=== PATIENT | male | born 1930 | race Caucasian/White ===

== ENCOUNTER 2019-10-14 19:52 | Inpatient (IN) | payer OTHER, MEDICARE ==
[2019-10-14] MEDS ORDERED: SODIUM CHLORIDE 500 ML IV STA (20:36)
[2019-10-14 21:09] LABS: HEMATOCRIT 30.5 % (35.4-49); HEMOGLOBIN 9.8 GM/dl (11.7-16.9); MCH 28.7 pg (25.7-33.7); MCHC 32.1 g/dl (32.0-35.9); MEAN CELL VOLUME 89.4 fl (80-96); MEAN PLT VOLUME 7.6 fl (7.5-11.1); PLATELET COUNT 121 K/MM3 (134-434); RBC 3.41 M/mm3 (4.00-5.60); RDW 20.7 % (11.9-15.9)
[2019-10-14 21:16] LABS: WHITE BLOOD COUNT 1.2 K/mm3 (4.0-10.8)
[2019-10-14 21:26] LABS: INR 1.26 (0.82-1.09)
[2019-10-14 21:30] LABS: ALBUMIN 3.4 g/dl (3.4-5.0); BILIRUBIN,TOTAL 0.5 mg/dl (0.2-1); CALCIUM 8.3 mg/dl (8.5-10); CREATININE 0.8 mg/dl (0.55-1.3); POTASSIUM 3.5 mmol/L (3.5-5.1); TOT PROT 5.5 g/dl (6.4-8.2)
[2019-10-14 21:47] LABS: ANISOCYTOSIS 3+; PLATELET ESTIMATE SLT DECREASE
[2019-10-14] MEDS ORDERED: SODIUM CHLORIDE 1,000 ML IV STA (21:55)
[2019-10-14] MEDS ORDERED: PIPERACILLIN/TAZOB 4.5 GM 4.5 GM in DEXTROSE 5%-WATER 100 ML IVPB ONE (22:10)
[2019-10-14] MEDS ORDERED: PIPERACILLIN/TAZOBACTAM 4.5 GM VIAL IVPB ONE (22:19)
[2019-10-15] MEDS ORDERED: SODIUM CHLORIDE 1,000 ML IV SCH (00:15)
[2019-10-15] MEDS ORDERED: HEPARIN NA (PORCINE) 5,000 UNITS/ML 1ML VIAL ONE (02:16)
--- NOTE | 2019-10-15 02:19 | PDOC ---
Documentation entered by Dionicio Pappas SCRIBE, acting as scribe for Reena Malcolm MD. Reena Malcolm MD: This documentation has been prepared by the kateeMian Aiswarya, SCRIBE, under my direction and personally reviewed by me in its entirety. I confirm that the documentation accurately reflects all work, treatment, procedures, and medical decision making performed by me. History of Present Illness - General Chief Complaint: Cold Symptoms Stated Complaint: FEVER Time Seen by Provider: 10/14/19 19:54 History Source: Patient Exam Limitations: No Limitations - History of Present Illness Initial Comments: 10/14/19 20:40 The patient is an 88 year old male, with a significant PMH of lymphoma (on chemotherapy ) who presents to the emergency department with generalized weakness that began this afternoon. Patient states his neighbor, who is a physician, came to check on him today and note a blood pressure of 170/60 and temperature 100.4. The patient states his chemo began 3 months ago at [facility] (1st chemo was on Jul.30) and gets it every 3 weeks with most recent administration one week ago. The patient denies chest pain, shortness of breath, headache and dizziness.Denies chills, nausea, vomit, diarrhea and constipation.Denies dysuria, frequency, urgency and hematuria. Allergies: NKDA Past surgical history:None reported Social history: None reported PCP: None reported Past History - Past Medical History Allergies/Adverse Reactions: Allergies Allergy/AdvReac Type Severity Reaction Status Date / Time No Known Allergies Allergy Unverified 10/14/19 20:01 Home Medications: Ambulatory Orders Allopurinol [Zyloprim -] 100 mg PO DAILY 10/14/19 Atorvastatin Calcium [Lipitor] 10 mg PO DAILY 10/14/19 Levofloxacin [Levaquin] 500 mg PO DAILY 10/14/19 Magnesium 300 mg PO BID 10/14/19 Metoprolol Succinate [Toprol Xl] 25 mg PO BID 10/14/19 Pantoprazole Sodium [Protonix] 40 mg PO DAILY 10/14/19 Cancer: Yes (LYMPHOMA) COPD: No - Psycho Social/Smoking Cessation Hx Smoking History: Unknown if ever smoked Have you smoked in the past 12 months: No Number of Cigarettes Smoked Daily: 0 Information on smoking cessation initiated: No Hx Alcohol Use: No Drug/Substance Use Hx: No Review of Systems - Review of Systems Able to Perform ROS?: Yes Comments:: 10/14/19 20:41 GENERAL/CONSTITUTIONAL: +fever +weakness HEAD, EYES, EARS, NOSE AND THROAT: No change in vision. No ear pain or discharge. No sore throat. CARDIOVASCULAR: No chest pain or shortness of breath. RESPIRATORY: No cough, wheezing, or hemoptysis. GASTROINTESTINAL: No nausea, vomiting, diarrhea or constipation. GENITOURINARY: No dysuria, frequency, or change in urination. MUSCULOSKELETAL: No joint or muscle swelling or pain. No neck or back pain. SKIN: No rash HEMATOLOGIC/LYMPHATIC: No anemia, easy bleeding, or history of blood clots. ALLERGIC/IMMUNOLOGIC: No hives or skin allergy. *Physical Exam - Vital Signs Last Vital Signs Temp Pulse Resp BP Pulse Ox 100.4 F H 118 H 15 150/77 96 10/14/19 19:56 10/14/19 19:56 10/14/19 19:56 10/14/19 19:56 10/14/19 19:56 - Physical Exam 10/14/19 20:52 GENERAL: Awake, alert, and fully oriented, in no acute distress HEAD: No signs of trauma EYES: PERRLA, EOMI, sclera anicteric, conjunctiva clear ENT:+dry mucous membrane. Moderate pharyngeal erythema no exudates or plaque seen. Auricles normal inspection, hearing grossly normal, nares patent. NECK: Normal ROM, supple, no lymphadenopathy, JVD, or masses LUNGS: Breath sounds equal, clear to auscultation bilaterally. No wheezes, and no crackles HEART: Regular rate and rhythm, normal S1 and S2, no murmurs, rubs or gallops ABDOMEN: Soft, nontender, normoactive bowel sounds. No guarding, no rebound. No masses EXTREMITIES: Normal range of motion, no edema. No clubbing or cyanosis. No cords, erythema, or tenderness NEUROLOGICAL: Cranial nerves II through XII grossly intact. Normal speech, normal gait SKIN: Warm, Dry, normal turgor, no rashes or lesions noted. ED Treatment Course - LABORATORY CBC & Chemistry Diagram: 10/14/19 21:00 10/14/19 21:10 - ADDITIONAL ORDERS Additional order review: Laboratory Results 10/14/19 10/14/19 10/14/19 21:10 21:10 21:10 PT with INR 14.0 H INR 1.26 H Sodium 134 L Potassium 3.5 Chloride 102 Carbon Dioxide 26 Anion Gap 6 L BUN 26.0 H Creatinine 0.8 Est GFR (CKD-EPI)AfAm 92.44 Est GFR (CKD-EPI)NonAf 79.76 Random Glucose 111 H Lactic Acid 1.7 Calcium 8.3 L Total Bilirubin 0.5 AST 17 ALT 22 Alkaline Phosphatase 69 Creatine Kinase 11 L Troponin I Total Protein 5.5 L Albumin 3.4 10/14/19 21:10 PT with INR INR Sodium Potassium Chloride Carbon Dioxide Anion Gap BUN Creatinine Est GFR (CKD-EPI)AfAm Est GFR (CKD-EPI)NonAf Random Glucose Lactic Acid Calcium Total Bilirubin AST ALT Alkaline Phosphatase Creatine Kinase Troponin I < 0.03 Total Protein Albumin 10/14/19 21:00 RBC 3.41 L MCV 89.4 MCHC 32.1 RDW 20.7 H MPV 7.6 Neutrophils % No Result Required. Lymphocytes % No Result Required. - RADIOLOGY Radiology Studies Ordered: Category Date Time Status CHEST X-RAY PORTABLE* [RAD] Stat Radiology 10/14/19 20:32 Taken - Medications Given in the ED: ED Medications Discontinued Medications Generic Name Dose Route Start Last Admin Trade Name Freq PRN Reason Stop Dose Admin Sodium Chloride 500 mls @ 500 mls/hr 10/14/19 20:36 10/14/19 20:45 Normal Saline - IV 10/14/19 21:35 500 mls/hr ASDIR STA Administration Sodium Chloride 1,000 mls @ 1,000 mls/hr 10/14/19 21:55 10/14/19 21:57 Normal Saline - IV 10/14/19 22:54 1,000 mls/hr ASDIR STA Administration Piperacillin Sod/Tazobactam 100 mls @ 200 mls/hr 10/14/19 22:10 10/14/19 22: 18 Sod 4.5 gm/ Dextrose IVPB 10/14/19 22:39 200 mls/hr ONCE ONE Administration Protocol Medical Decision Making - Medical Decision Making This 88-year-old man 1 week s/p most recent chemotherapy for his lymphoma presents with weakness and fever (100.4 F measured here on presentation). The patient normally begins Levaquin prophylactic antibiotic treatment today. No other symptoms reported. Exam as noted is unremarkable except for dry mucous membranes. Work-up reveals mild anemia and neutropenia with ANC of 1000 Patient has significant prerenal azotemia with BUN of 26 and creatinine of 0.8 Chest x-ray is unremarkable . Twelve-lead electrocardiogram is performed. Preliminary interpretation by me: Sinus tachycardia at 103/min with PACs. No acute ST or T wave abnormalities. Intervals, waveforms and axis are all normal. No evidence of acute cardiac arrhythmia. Clinical presentation most consistent with febrile neutropenia. Admission for empirical IV antibiotic treatment is warranted. Results and plan discussed with the patient and his son who understand and agree to the plan. Zosyn 4.5 g IV administered. IV fluids (normal saline) continued. Case discussed with NENA Jin. The patient will be admitted to Dr. Lopez service Discharge - Discharge Information Problems reviewed: Yes Clinical Impression/Diagnosis: Neutropenic fever Condition: Fair - Admission Yes - Follow up/Referral - Patient Discharge Instructions - Post Discharge Activity
[2019-10-15 03:08] VITALS: BMI 25.1
[2019-10-15 04:10] LABS: URINE APPEARANCE CLEAR; URINE BILIRUBIN NEGATIVE (NEGATIVE); URINE COLOR YELLOW; URINE GLUCOSE (UA) NEGATIVE (NEGATIVE); URINE KETONE NEGATIVE (NEGATIVE); URINE LEUK ESTERASE NEGATIVE (NEGATIVE); URINE NITRITE NEGATIVE (NEGATIVE); URINE PROTEIN NEGATIVE (NEGATIVE); URINE UROBILINOGEN 0.2 mg/dL (0.2-1.0)
[2019-10-15] MEDS: HEPARIN NA (PORCINE) 5,000 UNITS/ML 1ML VIAL SQ SCH ×3 (06:12→21:35)
--- NOTE | 2019-10-15 07:46 | HP ---
CHIEF COMPLAINT: Weakness, fever on chemo Oncologist: Dr. Cheng, [facility] [place] HISTORY OF PRESENT ILLNESS: 88 year-old male, with a significant PMH of lymphoma presently receiving chemotherapy, last session one week ago. Patient's neighbor is a physician who stopped by to see the patient. Patient complained of generalized weakness and he had a fever of 100.4. The patient came to the ED for evaluation of fever. Denies chest pain, shortness of breath, headache and dizziness. Denies chills, nausea, vomit, diarrhea and constipation. Denies dysuria, frequency, urgency and hematuria. ER course was notable for: (1) T100.4 (2) WBC 1.2k, Hgb 8.9, platelets 92k (3) Mg 1.5 Recent Travel: No PAST MEDICAL HISTORY: Lymphoma PAST SURGICAL HISTORY: None reported Social History: Smoking: Alcohol: Drugs: Allergies No Known Allergies Allergy (Unverified 10/14/19 20:01) HOME MEDICATIONS: Home Medications Medication Instructions Recorded Allopurinol [Zyloprim -] 100 mg PO DAILY 10/14/19 Atorvastatin Calcium [Lipitor] 10 mg PO DAILY 10/14/19 Levofloxacin [Levaquin] 500 mg PO DAILY 10/14/19 Magnesium 300 mg PO BID 10/14/19 Metoprolol Succinate [Toprol Xl] 25 mg PO BID 10/14/19 Pantoprazole Sodium [Protonix] 40 mg PO DAILY 10/14/19 REVIEW OF SYSTEMS CONSTITUTIONAL: +fever, weakness Absent: chills, diaphoresis, malaise, loss of appetite, weight change HEENT: Absent: rhinorrhea, nasal congestion, throat pain, throat swelling, difficulty swallowing, mouth swelling, ear pain, eye pain, visual changes CARDIOVASCULAR: Absent: chest pain, syncope, palpitations, irregular heart rate, lightheadedness , peripheral edema RESPIRATORY: Absent: cough, shortness of breath, dyspnea with exertion, orthopnea, wheezing, stridor, hemoptysis GASTROINTESTINAL: Absent: abdominal pain, abdominal distension, nausea, vomiting, diarrhea, constipation, melena, hematochezia GENITOURINARY: Absent: dysuria, frequency, urgency, hesitancy, hematuria, flank pain, genital pain MUSCULOSKELETAL: Absent: myalgia, arthralgia, joint swelling, back pain, neck pain SKIN: Absent: rash, itching, pallor HEMATOLOGIC/IMMUNOLOGIC: Absent: easy bleeding, easy bruising, lymphadenopathy, frequent infections ENDOCRINE: Absent: unexplained weight gain, unexplained weight loss, heat intolerance, cold intolerance NEUROLOGIC: Absent: headache, focal weakness or paresthesias, dizziness, unsteady gait, seizure, mental status changes, bladder or bowel incontinence PSYCHIATRIC: Absent: anxiety, depression, suicidal or homicidal ideation, hallucinations. PHYSICAL EXAMINATION Vital Signs - 24 hr 10/14/19 10/15/19 10/15/19 19:56 01:13 02:54 Temperature 100.4 F H 98.4 F 98.3 F Pulse Rate 118 H 93 H Pulse Rate [ 90 Right Radial] Respiratory 15 14 18 Rate Blood Pressure 150/77 169/66 Blood Pressure 133/66 [Left Arm] O2 Sat by Pulse 96 96 96 Oximetry (%) 10/15/19 04:01 Temperature 98.0 F Pulse Rate 74 Pulse Rate [ Right Radial] Respiratory 18 Rate Blood Pressure 135/55 L Blood Pressure [Left Arm] O2 Sat by Pulse 95 Oximetry (%) GENERAL: Awake, alert, and fully oriented, in no acute distress. HEAD: Normal with no signs of trauma. EYES: Pupils equal, round and reactive to light, extraocular movements intact, sclera anicteric, conjunctiva clear. No lid lag. EARS, NOSE, THROAT: Ears normal, nares patent, oropharynx clear without exudates. Moist mucous membranes. NECK: Normal range of motion, supple without lymphadenopathy, JVD, or masses. LUNGS: Breath sounds equal, clear to auscultation bilaterally. No wheezes, and no crackles. No accessory muscle use. HEART: Regular rate and rhythm, normal S1 and S2 without murmur, rub or gallop. ABDOMEN: Soft, nontender, not distended, normoactive bowel sounds, no guarding, no rebound, no masses. No hepatomegaly or splenomegaly. MUSCULOSKELETAL: Normal range of motion at all joints. No bony deformities or tenderness. No CVA tenderness. UPPER EXTREMITIES: 2+ pulses, warm, well-perfused. No cyanosis. No clubbing. No peripheral edema. LOWER EXTREMITIES: 2+ pulses, warm, well-perfused. No calf tenderness. No peripheral edema. NEUROLOGICAL: Cranial nerves II-XII intact. Normal speech. Normal gait. Laboratory Results - last 24 hr 10/14/19 10/14/19 10/14/19 21:00 21:10 21:10 WBC 1.2 L* RBC 3.41 L Hgb 9.8 L Hct 30.5 L MCV 89.4 MCH 28.7 MCHC 32.1 RDW 20.7 H Plt Count 121 L MPV 7.6 Absolute Neuts (auto) 1.1 Neutrophils % No Result Required. Neutrophils % (Manual) 82.0 Band Neutrophils % 2.0 Lymphocytes % No Result Required. Lymphocytes % (Manual) 12.0 Monocytes % (Manual) 2 L Eosinophils % (Manual) 2.0 Hypochromia 1+ Platelet Estimate Slt decrease Anisocytosis 3+ Microcytosis 1+ PT with INR INR Sodium 134 L Potassium 3.5 Chloride 102 Carbon Dioxide 26 Anion Gap 6 L BUN 26.0 H Creatinine 0.8 Est GFR (CKD-EPI)AfAm 92.44 Est GFR (CKD-EPI)NonAf 79.76 Random Glucose 111 H Lactic Acid Calcium 8.3 L Total Bilirubin 0.5 AST 17 ALT 22 Alkaline Phosphatase 69 Creatine Kinase 11 L Troponin I < 0.03 Total Protein 5.5 L Albumin 3.4 Urine Color Urine Appearance Urine pH Ur Specific Mcclave Urine Protein Urine Glucose (UA) Urine Ketones Urine Blood Urine Nitrite Urine Bilirubin Urine Urobilinogen Ur Leukocyte Esterase 10/14/19 10/14/19 10/15/19 21:10 21:10 01:15 WBC RBC Hgb Hct MCV MCH MCHC RDW Plt Count MPV Absolute Neuts (auto) Neutrophils % Neutrophils % (Manual) Band Neutrophils % Lymphocytes % Lymphocytes % (Manual) Monocytes % (Manual) Eosinophils % (Manual) Hypochromia Platelet Estimate Anisocytosis Microcytosis PT with INR 14.0 H INR 1.26 H Sodium Potassium Chloride Carbon Dioxide Anion Gap BUN Creatinine Est GFR (CKD-EPI)AfAm Est GFR (CKD-EPI)NonAf Random Glucose Lactic Acid 1.7 Calcium Total Bilirubin AST ALT Alkaline Phosphatase Creatine Kinase Troponin I Total Protein Albumin Urine Color Cancelled Urine Appearance Cancelled Urine pH Cancelled Ur Specific Mcclave Urine Protein Cancelled Urine Glucose (UA) Cancelled Urine Ketones Cancelled Urine Blood Cancelled Urine Nitrite Cancelled Urine Bilirubin Cancelled Urine Urobilinogen Cancelled Ur Leukocyte Esterase Cancelled 10/15/19 01:15 WBC RBC Hgb Hct MCV MCH MCHC RDW Plt Count MPV Absolute Neuts (auto) Neutrophils % Neutrophils % (Manual) Band Neutrophils % Lymphocytes % Lymphocytes % (Manual) Monocytes % (Manual) Eosinophils % (Manual) Hypochromia Platelet Estimate Anisocytosis Microcytosis PT with INR INR Sodium Potassium Chloride Carbon Dioxide Anion Gap BUN Creatinine Est GFR (CKD-EPI)AfAm Est GFR (CKD-EPI)NonAf Random Glucose Lactic Acid Calcium Total Bilirubin AST ALT Alkaline Phosphatase Creatine Kinase Troponin I Total Protein Albumin Urine Color Yellow Urine Appearance Clear Urine pH 8.0 Ur Specific Mcclave 1.015 Urine Protein Negative Urine Glucose (UA) Negative Urine Ketones Negative Urine Blood Negative Urine Nitrite Negative Urine Bilirubin Negative Urine Urobilinogen 0.2 Ur Leukocyte Esterase Negative ASSESSMENT/PLAN 88 year-old male, with a significant PMH of lymphoma presently receiving chemotherapy, admitted for neutropenic fever. Neutropenic fever --Tm 100.4, ANC 800, WBC 1.2k --asymptomatic --cultures collected and sent --discussed with Dr. Cheng at [facility] [place], keep patient under observation for at least 48 hours or until cultures negative Hypomagnesemia, chronic --replete FEN Fluids: PO intake adequate Electrolytes: replete as indicated Nutrition: neutropenic diet DVT prophylaxis: subq heparin Dispo: continues to require inpatient care. Full code. Visit type - Emergency Visit Emergency Visit: Yes ED Registration Date: 10/14/19 Care time: The patient presented to the Emergency Department on the above date and was hospitalized for further evaluation of their emergent condition. - New Patient This patient is new to me today: Yes Date on this admission: 10/16/19 - Critical Care Critical Care patient: No
[2019-10-15 08:05] LABS: BASO % 0.5 % (0-2.0); EOS % 1.5 % (0-4.5); HEMATOCRIT 28.1 % (35.4-49); HEMOGLOBIN 8.9 GM/dl (11.7-16.9); MCH 28.5 pg (25.7-33.7); MCHC 31.8 g/dl (32.0-35.9); MEAN CELL VOLUME 89.5 fl (80-96); MEAN PLT VOLUME 8.1 fl (7.5-11.1); MONO % 9.2 % (3.8-10.2); NEUT % 71.8 % (42.8-82.8); PLATELET COUNT 92 K/MM3 (134-434); RBC 3.14 M/mm3 (4.00-5.60); RDW 20.9 % (11.9-15.9)
[2019-10-15 08:09] LABS: ALBUMIN 2.8 g/dl (3.4-5.0); BILIRUBIN,TOTAL 0.6 mg/dl (0.2-1); CALCIUM 8.2 mg/dl (8.5-10); CREATININE 0.8 mg/dl (0.55-1.3); MAGNESIUM 1.5 mg/dL (1.8-2.4); POTASSIUM 3.7 mmol/L (3.5-5.1); TOT PROT 4.8 g/dl (6.4-8.2)
[2019-10-15 08:46] LABS: WHITE BLOOD COUNT 1.1 K/mm3 (4.0-10.8)
[2019-10-15] MEDS ORDERED: MAGNESIUM SULF 50% (8.12 MEQ/2 ML-1 GM VIAL) IVPB ONE (09:06)
[2019-10-15] MEDS ORDERED: MAGNESIUM SULFATE IN WATER 2 GM/50 ML IVPB IVPB ONE (09:15)
[2019-10-15] MEDS: ALLOPURINOL 100 MG TABLET (FP) PO SCH (09:33)
[2019-10-15] MEDS: ATORVASTATIN CA 10 MG TABLET (FP) PO SCH (09:34)
[2019-10-15] MEDS: PANTOPRAZOLE 40 MG TABLET (FP) PO SCH (09:34)
[2019-10-15] MEDS: metoPROLOL SUCCINATE 25 MG TAB.SR.24H (FP) PO SCH ×2 (09:34→21:34)
--- NOTE | 2019-10-15 11:59 | EKG ---
Test Reason : Blood Pressure : / mmHG Vent. Rate : 103 BPM Atrial Rate : 103 BPM P-R Int : 128 ms QRS Dur : 072 ms QT Int : 346 ms P-R-T Axes : 032 046 039 degrees QTc Int : 453 ms SINUS TACHYCARDIA WITH PREMATURE SUPRAVENTRICULAR COMPLEXES OTHERWISE NORMAL ECG NO PREVIOUS ECGS AVAILABLE Confirmed by JANAE BERMEO, VALENTINA ([id number]) on 10/15/2019 11:59:32 AM Referred By: MD WATKINS Confirmed By:VALENTINA CARDOSO MD
[2019-10-16] MEDS: HEPARIN NA (PORCINE) 5,000 UNITS/ML 1ML VIAL SQ SCH ×2 (05:55→13:38)
--- NOTE | 2019-10-16 07:34 | PN ---
Physical Exam: SUBJECTIVE: Patient seen and examined OBJECTIVE: Vital Signs Period Temp Pulse Resp BP Sys/[place] Pulse Ox Last 24 Hr 97.4 F-98.3 F 67-80 18-20 132-155/58-75 95-97 GENERAL: The patient is awake, alert, and fully oriented, in no acute distress. HEAD: Normal with no signs of trauma. EYES: PERRL, extraocular movements intact, sclera anicteric, conjunctiva clear. No ptosis. ENT: Ears normal, nares patent, oropharynx clear without exudates, moist mucous membranes. NECK: Trachea midline, full range of motion, supple. LUNGS: Breath sounds equal, clear to auscultation bilaterally, no wheezes, no crackles, no accessory muscle use. HEART: Regular rate and rhythm, S1, S2 without murmur, rub or gallop. ABDOMEN: Soft, nontender, nondistended, normoactive bowel sounds, no guarding, no rebound, no hepatosplenomegaly, no masses. EXTREMITIES: 2+ pulses, warm, well-perfused, no edema. NEUROLOGICAL: Cranial nerves II through XII grossly intact. Normal speech, gait not observed. PSYCH: Normal mood, normal affect. SKIN: Warm, dry, normal turgor, no rashes or lesions noted Laboratory Results - last 24 hr 10/15/19 10/15/19 07:25 07:25 WBC 1.1 L* RBC 3.14 L Hgb 8.9 L Hct 28.1 L MCV 89.5 MCH 28.5 MCHC 31.8 L RDW 20.9 H Plt Count 92 L D MPV 8.1 Absolute Neuts (auto) 0.8 Neutrophils % 71.8 Lymphocytes % 17.0 Monocytes % 9.2 Eosinophils % 1.5 Basophils % 0.5 Sodium 135 L Potassium 3.7 Chloride 104 Carbon Dioxide 25 Anion Gap 6 L BUN 21.0 H Creatinine 0.8 Est GFR (CKD-EPI)AfAm 92.44 Est GFR (CKD-EPI)NonAf 79.76 Random Glucose 98 Calcium 8.2 L Magnesium 1.5 L Total Bilirubin 0.6 AST 13 L ALT 18 Alkaline Phosphatase 55 D Total Protein 4.8 L Albumin 2.8 L Active Medications Generic Name Dose Route Start Last Admin Trade Name Freq PRN Reason Stop Dose Admin Allopurinol 100 mg 10/15/19 10:00 10/15/19 09:33 Zyloprim - PO 100 mg DAILY ERI Administration Atorvastatin Calcium 10 mg 10/15/19 10:00 10/15/19 09:34 Lipitor - PO 10 mg DAILY ERI Administration Heparin Sodium (Porcine) 5,000 unit 10/15/19 06:00 10/16/19 05:55 Heparin - SQ 5,000 unit TID ERI Administration Levofloxacin 500 mg 10/15/19 10:00 10/15/19 09:33 Levaquin - PO 500 mg DAILY ERI Administration Metoprolol Succinate 25 mg 10/15/19 10:00 10/15/19 21:34 Toprol Xl - PO 25 mg BID ERI Administration Pantoprazole Sodium 40 mg 10/15/19 10:00 10/15/19 09:34 Protonix - PO 40 mg DAILY ERI Administration ASSESSMENT/PLAN:
[2019-10-16 08:20] LABS: HEMATOCRIT 28.7 % (35.4-49); HEMOGLOBIN 9.2 GM/dl (11.7-16.9); MCH 28.5 pg (25.7-33.7); MCHC 32.1 g/dl (32.0-35.9); MEAN CELL VOLUME 88.8 fl (80-96); MEAN PLT VOLUME 8.6 fl (7.5-11.1); PLATELET COUNT 86 K/MM3 (134-434); RBC 3.23 M/mm3 (4.00-5.60); RDW 20.5 % (11.9-15.9)
[2019-10-16 08:39] LABS: ALBUMIN 2.8 g/dl (3.4-5.0); BILIRUBIN,TOTAL 0.5 mg/dl (0.2-1); CALCIUM 8.3 mg/dl (8.5-10); CREATININE 0.8 mg/dl (0.55-1.3); MAGNESIUM 1.5 mg/dL (1.8-2.4); POTASSIUM 3.6 mmol/L (3.5-5.1); TOT PROT 4.7 g/dl (6.4-8.2)
[2019-10-16 08:47] LABS: ADD RBC MORPHOLOGY YES
[2019-10-16 08:50] LABS: WHITE BLOOD COUNT 1.8 K/mm3 (4.0-10.8)
[2019-10-16] MEDS ORDERED: MAGNESIUM SULF 50% (8.12 MEQ/2 ML-1 GM VIAL) IVPB ONE (08:53)
[2019-10-16] MEDS ORDERED: MAGNESIUM SULFATE IN WATER 2 GM/50 ML IVPB IVPB ONE (09:00)
[2019-10-16] MEDS: ATORVASTATIN CA 10 MG TABLET (FP) PO SCH (09:15)
[2019-10-16] MEDS: metoPROLOL SUCCINATE 25 MG TAB.SR.24H (FP) PO SCH (09:16)
[2019-10-16] MEDS: ALLOPURINOL 100 MG TABLET (FP) PO SCH (09:16)
[2019-10-16] MEDS: PANTOPRAZOLE 40 MG TABLET (FP) PO SCH (09:17)
[2019-10-16 09:35] LABS: ANISOCYTOSIS 2+; PLATELET ESTIMATE MOD DECREASED
[2019-10-16] MEDS ORDERED: MAGNESIUM 300 MG PO SCH (10:00)
[2019-10-16 14:05] VITALS: BP 119/51; PULSE 68; TEMP 98.4
--- NOTE | 2019-10-16 15:54 | DS ---
Documentation entered by Cintia Cobb SCRIBE, acting as scribe for Peace Flowers NP. Physical Exam: SUBJECTIVE: Patient seen and examined OBJECTIVE: Vital Signs Period Temp Pulse Resp BP Sys/[place] Pulse Ox Last 24 Hr 97.4 F-98.3 F 67-80 18-20 132-155/58-75 95-97 PHYSICAL EXAM GENERAL: Awake, alert, and fully oriented, in no acute distress. HEAD: Normal with no signs of trauma. EYES: Pupils equal, round and reactive to light, extraocular movements intact, sclera anicteric, conjunctiva clear. No lid lag. EARS, NOSE, THROAT: Ears normal, nares patent, oropharynx clear without exudates. Moist mucous membranes. NECK: Normal range of motion, supple without lymphadenopathy, JVD, or masses. LUNGS: Breath sounds equal, clear to auscultation bilaterally. No wheezes, and no crackles. No accessory muscle use. HEART: Regular rate and rhythm, normal S1 and S2 without murmur, rub or gallop. ABDOMEN: Soft, nontender, not distended, normoactive bowel sounds, no guarding, no rebound, no masses. No hepatomegaly or splenomegaly. MUSCULOSKELETAL: Normal range of motion at all joints. No bony deformities or tenderness. No CVA tenderness. UPPER EXTREMITIES: 2+ pulses, warm, well-perfused. No cyanosis. No clubbing. No peripheral edema. LOWER EXTREMITIES: 2+ pulses, warm, well-perfused. No calf tenderness. No peripheral edema. NEUROLOGICAL: Cranial nerves II-XII intact. Normal speech. Normal gait. LABS Laboratory Results - last 24 hr 10/16/19 10/16/19 07:05 07:05 WBC 1.8 L* RBC 3.23 L Hgb 9.2 L Hct 28.7 L MCV 88.8 MCH 28.5 MCHC 32.1 RDW 20.5 H Plt Count 86 L MPV 8.6 Absolute Neuts (auto) 0.7 Neutrophils % No Result Required. Lymphocytes % No Result Required. Sodium 135 L Potassium 3.6 Chloride 106 Carbon Dioxide 24 Anion Gap 5 L BUN 17.0 Creatinine 0.8 Est GFR (CKD-EPI)AfAm 92.44 Est GFR (CKD-EPI)NonAf 79.76 Random Glucose 109 H Calcium 8.3 L Magnesium 1.5 L Total Bilirubin 0.5 AST 15 ALT 18 Alkaline Phosphatase 47 Total Protein 4.7 L Albumin 2.8 L HOSPITAL COURSE: Date of Admission:10/14/19 Date of Discharge: 10/16/19 Pre-Hospital Course: 88 year-old male, with a significant PMH of lymphoma presently receiving chemotherapy, last session one week ago. Patient's neighbor is a physician who stopped by to see the patient. Patient complained of generalized weakness and he had a fever of 100.4. The patient came to the ED for evaluation of fever. Denies chest pain, shortness of breath, headache and dizziness. Denies chills, nausea, vomit, diarrhea and constipation. Denies dysuria, frequency, urgency and hematuria. ED Course: (1) T100.4 (2) WBC 1.2k, Hgb 8.9, platelets 92k (3) Mg 1.5 Subsequent Hospital Course: 88 year-old male, with a significant PMH of lymphoma presently receiving chemotherapy, admitted for neutropenic fever. Neutropenic fever --single recorded fever Tm 100.4 on admission, defervesced --ANC 1,100-->800-->700 --asymptomatic --cultures negative to date, kept under observation for 48 hours, no fevers --discussed with Dr. Cheng at [facility] Hypomagnesemia, chronic --repleted Minutes to complete discharge: 35 Discharge Summary Problems reviewed: Yes Reason For Visit: FEBRILE NEUTROPENIA. Current Active Problems Febrile neutropenia (Acute) Condition: Improved - Instructions Diet, Activity, Other Instructions: It is recommended you follow up with Dr. Cheng within one week of your discharge. Return to the emergency department for any new or worsening symptoms. Referrals: Shaina Cheng [Non Staff, Medical] - Disposition: HOME - Home Medications Comprehensive Discharge Medication List: Ambulatory Orders Allopurinol [Zyloprim -] 100 mg PO DAILY 10/14/19 Atorvastatin Calcium [Lipitor] 10 mg PO DAILY 10/14/19 Levofloxacin [Levaquin] 500 mg PO DAILY 10/14/19 Magnesium 300 mg PO BID 10/14/19 Metoprolol Succinate [Toprol Xl] 25 mg PO BID 10/14/19 Pantoprazole Sodium [Protonix] 40 mg PO DAILY 10/14/19 This patient is new to me today: No Emergency Visit: Yes ED Registration Date: 10/14/19 Care time: The patient presented to the Emergency Department on the above date and was hospitalized for further evaluation of their emergent condition. Critical Care patient: No - Discharge Referral Referred to [facility] Peace Roth NP: This documentation has been prepared by the Reza mcintyre Maria, SCRIBE, under my direction and personally reviewed by me in its entirety. I confirm that the documentation accurately reflects all work, treatment, procedures, and medical decision making performed by me.
== END 2019-10-16 16:55 | disposition home or self-care (01) | DRG 809 ==
LOC: FER 19:52 → FM/S 23:58 → UNDOADMIN 10-15 00:22
PROVIDERS: ADMIT Internal Medicine; ATTEND Nurse Practitioner Acute Care
DX: D70.9 Neutropenia, unspecified (principal); C85.90 Non-Hodgkin lymphoma, unspecified, unspecified site; R50.81 Fever presenting with conditions classified elsewhere; E83.42 Hypomagnesemia
CPT/HCPCS: 36415; 71045-TC-FY; 80053; 81003; 82550; 83605; 83735; 84484; 85025; 85610; 87040; 87086; 93005; 97116-GP; 97161-GP; 99285-25; J1644; J7030